=== PATIENT | male | born 1980 | race Caucasian/White ===

== ENCOUNTER 2018-01-26 23:23 | Emergency (ER) | payer BC, OTHER ==
[2018-01-26 23:29] VITALS: BP 137/92; PULSE 114; TEMP 98; BMI 24.3
--- NOTE | 2018-01-27 01:31 | PDOC ---
History of Present Illness - General Chief Complaint: Head/Neck problem Stated Complaint: TINGELING FEELING Time Seen by Provider: 01/27/18 01:30 - History of Present Illness Initial Comments: 01/27/18 02:05 The patient is a 38 year old male with a history of anxiety and depression who presents for evaluation of tingling. The patient reports [place] began experiencing some tingling sensations in his hands prompting his presentation to the ED for further evaluation. He notes that his symptoms have since resolved and he is currently asymptomatic. He otherwise denies fevers, chills, headache, SOB, chest pain, nausea, vomiting , abdominal pain, weakness, numbness, or changes with urination or bowel movements. Past History - Past Medical History Allergies/Adverse Reactions: Allergies Allergy/AdvReac Type Severity Reaction Status Date / Time zolpidem [From Ambien] Allergy Verified 01/26/18 23:29 Home Medications: Ambulatory Orders Benztropine Mesylate [Cogentin -] 1 mg PO DAILY 04/23/14 Cholecalciferol (Vitamin D3) [Vitamin D] 1,000 unit PO DAILY 04/23/14 Divalproex [Depakote -] 1,000 mg PO DAILY 04/23/14 Duloxetine HCl [Cymbalta -] 30 mg PO BID 04/23/14 Lamotrigine [Lamictal] 100 mg PO DAILY 04/23/14 Lansoprazole [Prevacid -] 30 mg PO DAILY 04/23/14 Quetiapine Fumarate [Seroquel -] 400 mg PO BID 04/23/14 Risperidone [Risperdal] 1 mg PO DAILY 04/23/14 clonazePAM [KlonoPIN] 0.75 mg PO DAILY 04/23/14 COPD: No Psychiatric Problems: Yes (DEPRESSION) - Suicide/Smoking/Psychosocial Hx Smoking History: Never smoked Have you smoked in the past 12 months: No Hx Alcohol Use: No Substance Use Type: None Review of Systems - Review of Systems Comments:: 01/27/18 02:06 Constitutional: No fevers, chills, fatigue, malaise HEENT: No Rhinorrhea, nasal congestion, visual changes Cardiovascular: No chest pain, syncope, palpitations, lightheadedness Respiratory: No Cough, SOB, Hemoptysis, Gastrointestinal: No Abdominal pain, Nausea, Vomiting, Constipation, Diarrhea, Melena Genitourinary: No Dysuria, Frequency, Urgency, Hesitancy, Hematuria, Flank pain Musculoskeletal: No Myalgia, arthralgia Skin: No rashes, itching, bruising, pallor Neurologic: Tingling. No Headache, Dizziness, Numbness, Weakness, Psychiatric: No Hallucinations. No SI or HI *Physical Exam - Vital Signs Last Vital Signs Temp Pulse Resp BP Pulse Ox 98.0 F 114 H 18 137/92 96 01/26/18 23:27 01/26/18 23:27 01/26/18 23:27 01/26/18 23:27 01/26/18 23:27 - Physical Exam Comments: 01/27/18 02:07 General Appearance: Nourished. No Apparent Distress HEENT: EOMI, HARRIETT. No Pharyngeal Erythema, Tonsillar Exudate, Tonsillar Erythema Neck: No Cervical Lymphadenopathy Respiratory/Chest: Lungs Clear, Normal Breath Sounds. No Crackles, Rales, Rhonchi, Wheezing Cardiovascular: Regular Rhythm, Regular Rate. No Murmur, Gallops, Rubs Gastrointestinal/Abdominal: Normal Bowel Sounds, Soft. No Guarding, Rebound, Tenderness Musculoskeletal: No CVA Tenderness Extremity: Normal Capillary Refill Integumentary: Normal Color, Dry, Warm Neurologic: journalism intern II-XII NML intact, Fully Oriented, Alert, Normal Mood/Affect, Normal Response, Medical Decision Making - Medical Decision Making 01/27/18 02:07 The patient is a 38 year old male with a history of anxiety and depression who presents for evaluation of tingling. The patient appears clinically well on exam and is asymptomatic currently. It is likely his symptoms were related to his running up the stairs. We are comfortable discharging the patient home with primary care provider follow up. We discussed the plan and return precautions with the patient who voiced understanding and is agreeable with the plan. *DC/Admit/Observation/Transfer Diagnosis at time of Disposition: Tingling - Discharge Dispostion Disposition: HOME Condition at time of disposition: Stable Decision to Admit order: No - Referrals - Patient Instructions Printed Discharge Instructions: DI for Numbness/tingling Additional Instructions: Please return to the ER if you experience concerning or worsening symptoms including worsening pain, chest pain, or difficulty breathing. Please call to schedule a follow up appointment with your primary care provider within 1 week to discuss your ER visit and further management of your symptoms. - Post Discharge Activity
--- NOTE | 2018-01-27 01:41 | PDOC ---
Attending Attestation - Resident Resident Name: Edwar Ramos - ED Attending Attestation I have performed the following: I have examined & evaluated the patient, The case was reviewed & discussed with the resident, I agree w/resident's findings & plan, Exceptions are as noted - HPI HPI: 01/27/18 01:39 Pt c/o tingling after running upstairs this past evening. Symptoms have resolved since then - Physicial Exam PE: 01/27/18 01:39 *Physical Exam General Appearance: Yes: Appropriately Dressed. No: Apparent Distress, Intoxicated HEENT: positive: EOMI, HARRIETT, Normal ENT Inspection, Normal Voice, TMs Normal, Pharynx Normal. negative: Pale Conjunctivae, Photophobia, Scleral Icterus (R), Scleral Icterus (L) Neck: positive: Trachea midline, Normal Thyroid, Supple. negative: Tender, Rigid, Carotid bruit, Stridor, Lymphadenopathy (R), Lymphadenopathy (L), Thyromegaly Respiratory/Chest: positive: Lungs Clear, Normal Breath Sounds. negative: Chest Tender, Respiratory Distress, Accessory Muscle Use, Labored Respiration, RES, Crackles, Rales, Rhonchi, Stridor, Wheezing, Dullness Cardiovascular: positive: Regular Rhythm, Regular Rate, S1, S2. negative: Edema , JVD, Murmur, Bradycardia, Tachycardia Vascular Pulses: Dorsalis-Pedis (R): 2+, Doralis-Pedis (L): 2+ Gastrointestinal/Abdominal: positive: Normal Bowel Sounds, Flat, Soft. negative : Tender, Organomegaly, Pulsatile Mass, Increased Bowel Sounds, Decreased BS, Distended, Guarding, Rebound, Hernia, Hepatomegaly, Spleenomegaly Lymphatic: negative: Adenopathy, Tenderness Musculoskeletal: positive: Normal Inspection. negative: CVA Tenderness, Decreased Range of Motion Extremity: positive: Normal Capillary Refill, Normal Inspection, Normal Range of Motion, Pelvis Stable. negative: Tender, Pedal Edema, Swelling, Erythema Integumentary: positive: Normal Color, Dry, Warm. negative: Cyanotic, Erythema , Jaundice, Rash Neurologic: positive: cyber systems operations specialist II-XII NML intact, Fully Oriented, Alert, Normal Mood/ Affect, Motor Strength 5/5. negative: EOM Palsy, Facial Droop, Sensory Deficit - Medical Decision Making 01/27/18 01:41 Pt was treated and released.
== END 2018-01-27 02:34 | disposition home or self-care (01) ==
LOC: JER 23:23
DX: R20.2 Paresthesia of skin (principal); F41.9 Anxiety disorder, unspecified; F32.9 Major depressive disorder, single episode, unspecified
CPT/HCPCS: 99282-25

== ENCOUNTER 2018-06-08 10:47 | Emergency (ER) | payer BC, OTHER ==
[2018-06-08 11:13] VITALS: BP 141/81; PULSE 105; TEMP 98; BMI 22.1
--- NOTE | 2018-06-08 11:35 | PDOC ---
History of Present Illness - General Chief Complaint: Injury Stated Complaint: LACERATION Time Seen by Provider: 06/08/18 11:26 History Source: Patient Exam Limitations: Clinical Condition - History of Present Illness Initial Comments: 06/08/18 11:32 Patient with no significant past medical history present with complaint of laceration to left thumb with a kitchen knife while hour ago. Patient does not remember last tetanus vaccine. Patient denies numbness or tingling sensation to thumb. Timing/Duration: 1-3 hours Past History - Past Medical History Allergies/Adverse Reactions: Allergies Allergy/AdvReac Type Severity Reaction Status Date / Time zolpidem [From Ambien] Allergy Verified 06/08/18 11:13 Home Medications: Ambulatory Orders Benztropine Mesylate [Cogentin -] 1 mg PO DAILY 04/23/14 Cholecalciferol (Vitamin D3) [Vitamin D] 1,000 unit PO DAILY 04/23/14 Divalproex [Depakote -] 1,000 mg PO DAILY 04/23/14 Duloxetine HCl [Cymbalta -] 30 mg PO BID 04/23/14 Lamotrigine [Lamictal] 100 mg PO DAILY 04/23/14 Lansoprazole [Prevacid -] 30 mg PO DAILY 04/23/14 Quetiapine Fumarate [Seroquel -] 400 mg PO BID 04/23/14 Risperidone [Risperdal] 1 mg PO DAILY 04/23/14 clonazePAM [KlonoPIN] 0.75 mg PO DAILY 04/23/14 Ibuprofen 800 mg PO Q8H PRN #20 tablet 06/08/18 Mupirocin Ointment [Bactroban 2% Ointment -] 1 applic TP BID #1 tube 06/08/18 Sulfamethoxazole/Trimethoprim [Bactrim Ds -] 1 tab PO BID #14 tablet 06/08/18 COPD: No Psychiatric Problems: Yes (DEPRESSION) - Suicide/Smoking/Psychosocial Hx Smoking History: Never smoked Have you smoked in the past 12 months: No Hx Alcohol Use: No Drug/Substance Use Hx: No Substance Use Type: None Review of Systems - Review of Systems Able to Perform ROS?: Yes Is the patient limited British proficient: No Constitutional: No: Weakness HEENTM: No: Symptoms Reported Respiratory: No: Symptoms reported Cardiac (ROS): No: Symptoms Reported Musculoskeletal: Yes: Muscle Pain (left thumb over laceration area) Integumentary: Yes: Other (laceration to left thumb) Neurological: No: Numbness, Paresthesia, Tingling All Other Systems: Reviewed and Negative *Physical Exam - Vital Signs Last Vital Signs Temp Pulse Resp BP Pulse Ox 98 F 105 H 19 141/81 99 06/08/18 11:12 06/08/18 11:12 06/08/18 11:12 06/08/18 11:12 06/08/18 11:12 - Physical Exam Comments: 06/08/18 11:34 GENERAL: Well developed, well nourished. Awake and alert. No acute distress. CARDIOVASCULAR: Regular rate and rhythm. No murmurs, rubs, or gallops. PULMONARY: No evidence of respiratory distress. Lungs clear to auscultation bilaterally. No wheezing, rales or rhonchi. ABDOMINAL: Soft. Non-tender. Non-distended. No rebound or guarding. No organomegaly. Normoactive bowel sounds SKIN: 3cm linear laceration with flap to plantar aspect of distal phalange of left thumb with minimal bleeding. no foreign material in wound. 5/5 muscle strength to thumb. NEUROLOGICAL: Alert, awake, appropriate. No motor deficits in the lower extremities. PSYCHIATRIC: Cooperative. Good eye contact. Appropriate mood and affect. 06/08/18 11:55 General Appearance: Yes: Nourished, Appropriately Dressed. No: Apparent Distress Moderate Sedation - Procedure Monitoring Vital Signs: Procedure Monitoring Vital Signs Temperature 98 F 06/08/18 11:12 Pulse Rate 105 H 06/08/18 11:12 Respiratory Rate 06/08/18 11:12 Blood Pressure 141/81 06/08/18 11:12 O2 Sat by Pulse Oximetry (%) 99 06/08/18 11:12 Procedures - Laceration/Wound Repair Left Anterior Distal Plantar Finger 1st digit Wound Length: 2.6 to 5.0 cm (3) Wound Explored: clean Wound's Depth, Shape: superficial, flap Irrigated w/ Saline: Yes Betadine Prep: Yes Anesthesia: 1% Lidocaine Amount of Anesthetic (ccs): 2 Wound Repaired With: Sutures Suture Size/Type: 4:0, nylon Number of Sutures: 3 Layer Closure: No Sterile Dressing Applied: Yes Splint Applied: No Sling Applied: No Progress: 06/08/18 12:00 3 cm linear laceration to plantar aspect of distal phalange of left thumb cleaned with Betadine. Wound infiltrated with 2 mL 1% lidocaine with 25-gauge needle. Good anesthesia achieved to wound site. Wound closed with 3 interrupted 4-0 nylon sutures. Good hemostasis achieved. Bacitracin applied to wound and wound covered with adhesive bandage. Tetanus vaccine ordered. Patient tolerated procedure well and left the room without difficulty. Medical Decision Making - Medical Decision Making 06/08/18 11:57 Patient with no significant past medical history present with complaint of laceration to left thumb with a kitchen knife while hour ago. Patient does not remember last tetanus vaccine Exam significant for 3cm linear laceration with flap to plantar aspect of distal phalange of left thumb with minimal bleeding. no foreign material in wound. 5/5 muscle strength to thumb 06/08/18 11:57 Wound cleaned with Betadine and closed with 3 interrupted 4-0 nylon sutures. Hemostasis achieved was sutures with no more bleeding. Bacitracin applied to wound site and wound covered with adhesive bandage. Patient educated on home wound care. Patient to follow-up in one week for suture removal. Bactrim antibiotics for a week given for infection prophylaxis.Tetanus vaccine given by nurse 06/08/18 12:02 *DC/Admit/Observation/Transfer Diagnosis at time of Disposition: Laceration of left thumb without damage to nail Qualifiers: Encounter type: initial encounter Foreign body presence: without foreign body Qualified Code(s): S61.012A - Laceration without foreign body of left thumb without damage to nail, initial encounter - Discharge Dispostion Disposition: HOME Condition at time of disposition: Stable Decision to Admit order: No - Prescriptions Prescriptions: Ibuprofen 800 mg PO Q8H PRN #20 tablet PRN Reason: pain Mupirocin Ointment [Bactroban 2% Ointment -] 1 applic TP BID #1 tube Sulfamethoxazole/Trimethoprim [Bactrim Ds -] 1 tab PO BID #14 tablet - Referrals - Patient Instructions Printed Discharge Instructions: How to Care for a Laceration After Repair, DI for Laceration Repair -- Simple Additional Instructions: Take medications as prescribed. Apply prescribed Bactroban cream to wound twice a day. Take Motrin as needed for pain. Follow-up in one week for suture removal in 8 to ER or with PCP - Post Discharge Activity
[2018-06-08] MEDS ORDERED: DIPHTH,PERTUSS(ACELL),TET 0.5 ML DISP.SYRIN IM ONE ×2 (11:46→11:56)
== END 2018-06-08 12:15 | disposition home or self-care (01) ==
LOC: JERFT 10:47
PROC: 3E0234Z Introduction of Serum, Toxoid and Vaccine into Muscle, Percutaneous Approach (ICD-10-PCS; principal; 2018-06-08)
PROC: 0HQGXZZ Repair Left Hand Skin, External Approach (ICD-10-PCS; 2018-06-08)
DX: S61.012A Laceration without foreign body of left thumb without damage to nail, initial encounter (principal); W26.0XXA Contact with knife, initial encounter; Y93.89 Activity, other specified; Y92.030 Kitchen in apartment as the place of occurrence of the external cause; Y99.8 Other external cause status
CPT/HCPCS: 90715; 99282-25

== ENCOUNTER 2018-06-15 13:49 | Emergency (ER) | payer BC, OTHER ==
[2018-06-15 14:07] VITALS: BP 125/86; PULSE 98; TEMP 97.8; BMI 27.3
--- NOTE | 2018-06-15 14:20 | PDOC ---
Suture Removal/Wound Check HPI - History of Present Illness Stated Complaint: SUTURE/STAPLE REMOVAL History Source: Yes: Patient Past History - Past Medical History Allergies/Adverse Reactions: Allergies Allergy/AdvReac Type Severity Reaction Status Date / Time zolpidem [From Ambien] Allergy Verified 06/08/18 11:13 Home Medications: Ambulatory Orders Benztropine Mesylate [Cogentin -] 1 mg PO DAILY 04/23/14 Cholecalciferol (Vitamin D3) [Vitamin D] 1,000 unit PO DAILY 04/23/14 Divalproex [Depakote -] 1,000 mg PO DAILY 04/23/14 Duloxetine HCl [Cymbalta -] 30 mg PO BID 04/23/14 Lamotrigine [Lamictal] 100 mg PO DAILY 04/23/14 Lansoprazole [Prevacid -] 30 mg PO DAILY 04/23/14 Quetiapine Fumarate [Seroquel -] 400 mg PO BID 04/23/14 Risperidone [Risperdal] 1 mg PO DAILY 04/23/14 clonazePAM [KlonoPIN] 0.75 mg PO DAILY 04/23/14 Ibuprofen 800 mg PO Q8H PRN #20 tablet 06/08/18 Mupirocin Ointment [Bactroban 2% Ointment -] 1 applic TP BID #1 tube 06/08/18 Sulfamethoxazole/Trimethoprim [Bactrim Ds -] 1 tab PO BID #14 tablet 06/08/18 COPD: No GI Disorders: No Hypercholesterolemia: No Psychiatric Problems: Yes (DEPRESSION) - Immunization History Immunization Up to Date: No - Suicide/Smoking/Psychosocial Hx Smoking History: Never smoked Have you smoked in the past 12 months: No Information on smoking cessation initiated: No Hx Alcohol Use: No Drug/Substance Use Hx: No Substance Use Type: None Suture Removal/Wound Check PE - Physical Exam Laceration/Wound Check Symptoms: reports: Improved. denies: Fever, Chills, Redness, Discharge, Bleeding, Numbness, Weakness *Physical Exam - Vital Signs Last Vital Signs Temp Pulse Resp BP Pulse Ox 97.8 F 98 H 18 125/86 100 06/15/18 14:05 06/15/18 14:05 06/15/18 14:05 06/15/18 14:05 06/15/18 14:05 Moderate Sedation - Procedure Monitoring Vital Signs: Procedure Monitoring Vital Signs Temperature 97.8 F 06/15/18 14:05 Pulse Rate 98 H 06/15/18 14:05 Respiratory Rate 18 06/15/18 14:05 Blood Pressure 125/86 06/15/18 14:05 O2 Sat by Pulse Oximetry (%) 100 06/15/18 14:05 Medical Decision Making - Medical Decision Making 38 y/o M presents for suture removal s/p L thumb lac which was repaired last week. Denies fever, redness, discharge from site Lac healed 3 sutures removed 06/15/18 14:19 *DC/Admit/Observation/Transfer Diagnosis at time of Disposition: Visit for suture removal - Discharge Dispostion Disposition: HOME Condition at time of disposition: Good Decision to Admit order: No - Referrals - Patient Instructions Printed Discharge Instructions: DI for Suture Removal - Post Discharge Activity
== END 2018-06-15 14:23 | disposition home or self-care (01) ==
LOC: JERFT 13:49
DX: Z48.02 Encounter for removal of sutures (principal)
CPT/HCPCS: 99281-25